=== PATIENT | female | born 1930 | race Caucasian/White ===

== ENCOUNTER 2017-06-17 14:23 | Emergency (ER) | payer MEDICARE ==
[2017-06-17] MEDS ORDERED: 0.9 % SODIUM CHLORIDE 10 ML DISP.SYRIN. IV (14:30)
[2017-06-17 14:38] LABS: ADD MAN DIFF? NO
[2017-06-17 14:41] LABS: BASO # 0.1 x10^3/uL (0.0-0.2); BASO % 1 % (0-3); EOS # 0.2 x10^3/uL (0.0-0.7); EOS % 3 % (0-3); HEMATOCRIT 42.7 % (36.0-47.0); HEMOGLOBIN 14.6 g/dL (12.0-15.5); LYMPH # 1.1 x10^3/uL (1.0-4.8); LYMPH % 15 % (24-48); MEAN CORPUSCULAR HEMOGLOBIN 30 pg (25-35); MEAN CORPUSCULAR HGB CONC 34 g/dL (31-37); MEAN CORPUSCULAR VOLUME 88 fL (79-100); MONO # 0.5 x10^3/uL (0.0-1.1); MONO % 6 % (0-9); NEUT # 5.7 x10^3uL (1.8-7.7); NEUT % 75 % (31-73); PLATELET COUNT 270 x10^3/uL (140-400); RED BLOOD COUNT 4.84 x10^6/uL (3.50-5.40); RED CELL DISTRIBUTION WIDTH 14.8 % (11.5-14.5); WHITE BLOOD COUNT 7.6 x10^3/uL (4.0-11.0)
[2017-06-17 14:47] LABS: BILIRUBIN,URINE SMALL (NEG); CLARITY,URINE TURBID; COLOR,URINE AMBER; GLUCOSE,URINE NEGATIVE (NEG); NITRITE,URINE POSITIVE (NEG); PROTEIN,URINE 100 mg/dL (NEG-TRACE)
[2017-06-17 14:54] LABS: ANION GAP 8 (6-14); BLOOD UREA NITROGEN 13 mg/dL (7-20); CALCIUM 10.1 mg/dL (8.5-10.1); CARBON DIOXIDE 27 mmol/L (21-32); CHLORIDE 105 mmol/L (98-107); CREATININE 1.2 mg/dL (0.6-1.0); GFR 42.7; GLUCOSE 151 mg/dL (70-99); POTASSIUM 4.5 mmol/L (3.5-5.1); SODIUM 140 mmol/L (136-145)
[2017-06-17 15:00] LABS: ALBUMIN 3.6 g/dL (3.4-5.0); ALK PHOS 94 U/L (46-116); ALT (SGPT) 27 U/L (14-59); AST (SGOT) 18 U/L (15-37); DIRECT BILIRUBIN 0.1 mg/dL (0.0-0.2); MAGNESIUM 2.3 mg/dL (1.8-2.4); TOTAL BILIRUBIN 0.4 mg/dL (0.2-1.0); TOTAL PROTEIN 8.7 g/dL (6.4-8.2)
[2017-06-17] MEDS: IV NORMAL SALINE 1000ML BAG 1,000 ML IV (15:01)
[2017-06-17 15:05] LABS: TROPONINI 0.019 ng/mL (0.000-0.055)
[2017-06-17 15:07] LABS: THYROID STIM HORMONE (TSH) 7.147 uIU/mL (0.358-3.74)
[2017-06-17 15:08] LABS: CKMB MASS 0.6 ng/mL (0.0-3.6); CREATINE KINASE 26 U/L (26-192)
[2017-06-17 15:08] LABS: NT-PRO BNP 2235 pg/mL (0-449)
[2017-06-17 15:10] LABS: BACTERIA,URINE MANY /HPF (0-FEW); HYALINE CASTS, URINE MANY /HPF; WBC,URINE TNTC /HPF (0-4)
[2017-06-17 15:15] LABS: LACTIC ACID 3.4 mmol/L (0.4-2.0)
[2017-06-17 15:39] LABS: INFLUENZA A PATIENT NEGATIVE (NEGATIVE); INFLUENZA B PATIENT NEGATIVE (NEGATIVE); OBC FLU VALID
[2017-06-17] MEDS: CIPROFLOXACIN HCL 250 MG TABLET. PO (16:12)
== END 2017-06-17 16:55 | disposition home or self-care (01) ==
LOC: ER 14:23
DX: R55 Syncope and collapse (principal); N39.0 Urinary tract infection, site not specified; I95.89 Other hypotension; F03.90 Unspecified dementia, unspecified severity, without behavioral disturbance, psychotic disturbance, mood disturbance, and anxiety; E78.5 Hyperlipidemia, unspecified; Z86.73 Personal history of transient ischemic attack (TIA), and cerebral infarction without residual deficits; I48.91 Unspecified atrial fibrillation; I10 Essential (primary) hypertension; F32.9 Major depressive disorder, single episode, unspecified; Z87.442 Personal history of urinary calculi; Z79.899 Other long term (current) drug therapy; Z88.0 Allergy status to penicillin; Z88.7 Allergy status to serum and vaccine; Z88.8 Allergy status to other drugs, medicaments and biological substances
CPT/HCPCS: 36415; 70450; 71045; 80048; 80076; 81001; 82553; 83605; 83735; 83880; 84443; 84484; 85025; 87040; 87086; 87804; 87804-59; 93005; 96360; 99285-25; J7030

== ENCOUNTER 2017-08-13 22:18 | Emergency (ER) | payer MEDICARE ==
[2017-08-13] MEDS: ACETAMINOPHEN 500 MG TABLET PO (23:59)
[2017-08-13] MEDS: NEOMY/BACITR/POLYMYXIN OINT PACKET. TP (23:59)
== END 2017-08-14 00:21 | disposition home or self-care (01) ==
LOC: ER 08-14 00:21
DX: S69.91XA Unspecified injury of right wrist, hand and finger(s), initial encounter (principal); F03.90 Unspecified dementia, unspecified severity, without behavioral disturbance, psychotic disturbance, mood disturbance, and anxiety; Z86.73 Personal history of transient ischemic attack (TIA), and cerebral infarction without residual deficits; Z88.0 Allergy status to penicillin; Z88.8 Allergy status to other drugs, medicaments and biological substances; Z88.7 Allergy status to serum and vaccine; W07.XXXA Fall from chair, initial encounter; Y93.89 Activity, other specified; Y99.8 Other external cause status; Y92.89 Other specified places as the place of occurrence of the external cause
CPT/HCPCS: 73130; 99284